=== PATIENT | male | born 1960 | race Caucasian/White ===

== ENCOUNTER 2018-07-18 09:47 | Day surgery (SDC) | payer OTHER ==
[2018-07-17 09:06] VITALS: BMI 29.9
--- NOTE | 2018-07-18 09:46 | HP ---
History & Physical Update - History History: No Change - Physical Physical: No Change - Assessment Assessment: No Change - Plan Plan: No Change (Plan: Excision biopsy of left sided neck mass/ lymph node. Procedure was explained, diagnostic procedure, risks , benefits and complications were explained.)
[2018-07-18 10:12] LABS: BASO % 0.5 % (0-2.0); EOS % 5.5 % (0-4.5); HEMATOCRIT 42.2 % (35.4-49); HEMOGLOBIN 14.1 GM/dL (11.7-16.9); MCH 30.1 pg (25.7-33.7); MCHC 33.5 g/dl (32.0-35.9); MEAN CELL VOLUME 89.9 fl (80-96); MEAN PLT VOLUME 7.5 fl (7.5-11.1); MONO % 6.1 % (3.8-10.2); NEUT % 67.9 % (42.8-82.8); PLATELET COUNT 281 K/MM3 (134-434); RBC 4.69 M/mm3 (4.00-5.60); RDW 13.1 % (11.9-15.9); WHITE BLOOD COUNT 8.9 K/mm3 (4.0-10.0)
--- NOTE | 2018-07-18 10:40 | EKG ---
Test Reason : Blood Pressure : / mmHG Vent. Rate : 079 BPM Atrial Rate : 079 BPM P-R Int : 148 ms QRS Dur : 086 ms QT Int : 386 ms P-R-T Axes : 053 025 034 degrees QTc Int : 442 ms NORMAL SINUS RHYTHM NORMAL ECG NO PREVIOUS ECGS AVAILABLE Confirmed by LA CAMPBELL MD ([id number]) on 07/18/2018 10:39:47 AM Referred By: Nilson Jackson Confirmed By:LA CAMPBELL MD
[2018-07-18 10:41] LABS: ALBUMIN 4.1 g/dl (3.4-5.0); ALK PHOS 75 U/L (45-117); ANION GAP 10 MMOL/L (8-16); BILIRUBIN,TOTAL 1.3 mg/dL (0.2-1); BLOOD UREA NITROGEN 16 mg/dL (7-18); CALCIUM 8.6 mg/dL (8.5-10.1); CHLORIDE 107 mmol/L (98-107); CO2 26 mmol/L (21-32); CREATININE 0.9 mg/dL (0.55-1.3); GLUCOSE,RANDOM 197 mg/dL (74-106); POTASSIUM 3.9 mmol/L (3.5-5.1); SGOT/AST 19 U/L (15-37); SGPT/ALT 29 U/L (13-61); SODIUM 143 mmol/L (136-145); TOT PROT 7.7 g/dl (6.4-8.2)
[2018-07-18] MEDS ORDERED: MIDAZOLAM HCL 2 MG/2 ML SINGLE DOSE VIAL ONE (12:45)
[2018-07-18] MEDS ORDERED: PROPOFOL 20 ML ONE ×2 (12:45→12:56)
[2018-07-18] MEDS ORDERED: ROCURONIUM BROMIDE 50 MG/5 ML VIAL ONE (12:45)
[2018-07-18] MEDS ORDERED: fentaNYL CITRATE 250 MCG/5 ML VIAL ONE (12:45)
[2018-07-18] MEDS ORDERED: ONDANSETRON 4 MG/2 ML VIAL ONE (12:47)
[2018-07-18] MEDS ORDERED: LIDOCAINE HCL/PF 2% SDV 5ML VIAL ONE ×2 (12:47→13:27)
[2018-07-18] MEDS ORDERED: DEXAMETHASONE SOD PHOSPHATE 4 MG/1 ML VIAL ONE (12:47)
[2018-07-18] MEDS ORDERED: NEOSTIGMINE METHYLSULFATE 0.5 MG/1 ML - 10 ML MDV ONE (13:06)
--- NOTE | 2018-07-18 13:39 | OP ---
Operative Note - Note: Operative Date: 07/18/18 Pre-Operative Diagnosis: Cervical lymphadenopathy. Operation: Direct laryngoscopy, excision of left deep cervical lymph node.( biopsy). Findings: Normal oropharynx, normal larynx and laryngopharynx. Enlarged left deep cervical lymph nodes, jugular chain and posterior triangle. Post-Operative Diagnosis: Same as Pre-op Surgeon: Nilson Jackson Anesthesiologist/DEADENER: Federico Myrick Anesthesia: General Specimens Removed: Left deep cervical lymph node. Estimated Blood Loss (mls): 5 Operative Report Dictated: Yes
[2018-07-18] MEDS ORDERED: oxyCODONE HCL 5 MG TABLET PO PRN (15:19)
[2018-07-18] MEDS ORDERED: ONDANSETRON 4 MG/2 ML VIAL IVPUSH PRN (15:19)
[2018-07-18 15:30] VITALS: BP 133/81; PULSE 81; TEMP 98
[2018-07-18] MEDS ORDERED: LACTATED RINGERS SOLUTION 1,000 ML IV SCH (15:30)
--- NOTE | 2018-07-19 09:56 | OP ---
DATE OF OPERATION: 07/18/2018 PREOPERATIVE DIAGNOSIS: Cervical lymphadenopathy on the left side. Fine needle-aspiration biopsy showed atypical cells. POSTOPERATIVE DIAGNOSIS: Cervical lymphadenopathy on the left side. Fine needle-aspiration biopsy showed atypical cells. OPERATIVE PROCEDURE: 1. Direct laryngoscopy. 2. Left deep cervical lymph node biopsy. SURGEON: Justin Jackson MD ANESTHESIA: General. OPERATIVE DESCRIPTION: This 58-year-old man had enlarging masses on the left side of his neck for the past year or 2 , otherwise asymptomatic. The patient was referred [facility] and presented to [facility] with large masses in the posterior triangle on the left side of the neck. The patient had a FNA biopsy which was suspicious for lymphoma with atypical cells; however, it was not conclusive. The patient was brought in for direct laryngoscopy and deep cervical lymph node biopsy on the left side. Consent was obtained. Risks, benefits and complications have been discussed with the patient. The patient was given general anesthesia. A direct laryngoscopy was performed. The oropharynx, hypopharynx, and laryngopharynx were normal. Both piriform sinuses were normal. The supraglottic larynx was normal. The base of the tongue, oral cavity was normal. There was no induration. The patient was then positioned with the neck in extension. The left side of the neck was painted and draped. There was a large mass behind the left sternocleidomastoid muscle in the midneck. After a timeout was called, a horizontal incision was made of about 2-3 cm which was deepened through the skin, subcutaneous tissue, platysma, and the deep cervical fascia. The left sternocleidomastoid muscle was retracted anteriorly. There was a large lymph node measuring 4 cm in diameter. This was carefully from the rest of the structures and the left jugular vein. All bleeding vessels were clipped and ligated with 3-0 silk sutures. The gland was carefully removed intact and sent to Pathology fresh. Hemostasis was then achieved using electrocautery and 3-0 silk sutures. The wound was then closed in layers, approximating the deep fascia by buried interrupted 3-0 Vicryl sutures, platysma buried interrupted 3-0 Vicryl sutures, and skin with continuous 4-0 Monocryl sutures in a running subcuticular fashion. Dermabond was applied across the skin edges. Estimated blood loss was less than 5 mL. The patient tolerated the procedure well, was extubated, and returned to the recovery room in satisfactory and stable condition. Pepe [id number] MTDD
--- NOTE | 2018-07-25 10:54 | PATH ---
Surgical Pathology Report Patient Name: LOUISE BUTLER [facility]. Rec. #: [id number] /Age/Gender: 1960 (Age: 58) / M Account: [id number] Location: [facility] SURGICAL Taken: 07/18/2018 Received: 07/18/2018 Reported: 07/25/2018 Physicians: Justin Jackson M.D. Specimen(s) Received LEFT DEEP CERVICAL LYMPH NODE Clinical History Cervical lymphadenopathy rule our lymphoma Final Diagnosis DEEP CERVICAL LYMPH NODE, LEFT, EXCISION: FOLLICULAR LYMPHOMA, PREDOMINANTLY LOW GRADE (80-90% OF LYMPH NODE), FOLLICULAR AND DIFFUSE PATTERN. FOCAL HIGH GRADE FOLLICULAR LYMPHOMA (APPROXIMATELY 10% OF LYMPH NODE) SEE COMMENT. Comments: Histologic sections show a markedly enlarged lymph node with a nodular architecture. There are scattered small atypical follicles that consist of small centrocytes and larger centroblasts. In focal follicles, the centroblasts number greater than 15 per high power field. In addition, the interfollicular areas are expanded by predominantly small lymphocytes and few centroblasts. Immunohistochemical stains are performed on Block 3 with appropriate controls. A stain for CD20 highlights the follicles and increased numbers of B-cells in the interfollicular areas. A stain for CD3 highlights T-cells within the interfollicular areas. The CD20+ B-cells within nodules and interfollicular areas are positive for CD10, BCL-6, and BCL-2. A stain for CD5 is similar to CD3. A stain for Cyclin-D1 is negative in lymphocytes. Stains for CD21 and CD23 highlight intact follicular dendritic meshworks within the nodules. A stain for Ki67 is overall low, highlighting less than 10% of lymphocytes, but focally is much higher in some of the follicles. 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 There are markedly increased numbers of atypical small B-cells, that are in a mostly diffuse pattern between scattered small follicles. However within many follicles, there are increased numbers of centroblasts which would be considered focal grade 3A. These correspond with a higher Ki67 proliferation rate. Overall, these areas represent a relative minority of the lymph node. Please correlate with clinical, radiographic, and other laboratory findings. This case was sent to Dr. Ricky Avila from [facility] [place], [place] ([id number]) the diagnosis above reflects his opinion. See [facility] reports ([id number] and [id number]) for additional details Electronically Signed Cammy Flynn M.D. Gross Description Received fresh labeled with "left deep cervical lymph node", is a nodular lesion measuring 4 x 3 x 1.5 cm. Serial sections reveal kim, solid, homogeneous cut surfaces. Portions of tissue are sent in RPMI for flow cytometry study. Foreign Collection Clerk sections are submitted for histology in 4 cassettes. YESICA/07/18/2018 maia/07/18/2018
== END 2018-07-18 15:30 | disposition home or self-care (01) ==
LOC: JASU-SURG 09:47
PROVIDERS: ATTEND Specialist
PROC: 07B20ZX Excision of Left Neck Lymphatic, Open Approach, Diagnostic (ICD-10-PCS; principal; 2018-07-18 11:30)
PROC: 0CJS8ZZ Inspection of Larynx, Via Natural or Artificial Opening Endoscopic (ICD-10-PCS; 2018-07-18 11:30)
DX: R59.0 Localized enlarged lymph nodes (principal); I10 Essential (primary) hypertension; E11.9 Type 2 diabetes mellitus without complications
CPT/HCPCS: 36415; 80053; 85025; 88307-TC; 93005; 93010; 94760